=== PATIENT | female | born 1970 | race Hispanic/Latino ===

== ENCOUNTER 2025-03-22 15:18 | Emergency (ER) | payer BC ==
[~2025-03-22] VITALS: Ht 152.4 cm; Wt 58.5 kg
[2025-03-22 15:34] VITALS: BP 117/74; PULSE 95; RESP 18; TEMP 98.8; O2SAT 98
[2025-03-22] MEDS: CLINDAMYCIN 150 MG CAP PO ONE (15:39)
[2025-03-22] MEDS ORDERED: CLIN-141 PO (16:04)
--- NOTE | 2025-03-22 16:05 | ERN ---
ED Note History of Present Illness Stated Complaint: LEFT TOOTH PAIN Chief Complaint: Tooth Ache/Pain Time Seen by MD: 15:25 Time Seen by Midlevel: 15:26 Dictation: 54-year-old female presents to the emergency department due to report of having pain to the left lower tooth that began 6 days ago. She states that she was placed on amoxicillin 3 days ago and has not felt any significant improvement. At this time, her level of discomfort is rated as a 4/10. She denies having any fever or chills associated with this. Patient states that the discomfort is primarily worsened with chewing or drinking cold liquids. She states that she is pending to follow up with her dentist next week. Upon initial evaluation, the patient presents in no acute distress. Allergies: Coded Allergies: No Known Drug Allergies (Unverified Allergy, Unknown, 03/22/25) Emergency Care RESOLUTION REP: None Past Medical History Past Medical History: Anxiety, Cancer, Depression, High Cholesterol Surgical History: None Surgical History Other: LAP ABD X2 SUGERIES History: Not Applicable RN Note Reviewed/Agreed w/PFSH: Yes Review of System Dictation ENT: Toothache Initial Vital Sign VS Vital Signs Date Time Temp Pulse Resp B/P (MAP) Pulse Ox O2 Delivery O2 Flow Rate FiO2 03/22/25 15:26 98.8 105 18 117/74 98 Room Air 0 03/22/25 15:34 21 Physical Exam Dictation General: awake, alert, NAD Head/Face: Normocephalic, atraumatic Eyes: PERRL, EOMI ENT: Oral mucosa moist, infected dental caries tooth 19. Neck: Trachea midline, supple Cardiovascular: RRR, no edema Respiratory: Symmetrical, non-labored Abdomen: Soft, non-tender, non-distended, no guarding. Skin: Warm, dry, good turgor, no rash MS/Extremity: Pulses equal, no cyanosis, neurovascular intact, FROM Neuro: COAx4, GCS 15, steady gait, Psych: Normal behavior, mood, and affect normal ED Course ED Course Orders Procedure Category Date Status Time Clindamycin 150mg Cap PHA 03/22/25 In Process (Cleocin 150mg Cap 16:00 Current Medications Medications (Trade) Dose Ordered Sig/West Route PRN Reason Start Time Stop Time Status Last Admin Dose Admin Clindamycin HCl (Cleocin 150mg Cap) 300 mg ONCE ONCE PO 03/22/25 16:00 03/22/25 16:01 03/22/25 15:39 Vital Signs Date Time Temp Pulse Resp B/P (MAP) Pulse Ox O2 Delivery O2 Flow Rate FiO2 03/22/25 15:34 98.8 95 18 117/74 98 Room Air* 0 21 03/22/25 15:26 98.8 105 18 117/74 98 Room Air 0 Medical Decision Making MDM MDM: Differential diagnosis: Dentalgia, infected dental caries, tooth fracture. Rationale: Tests considered and ordered secondary to shared decision making include: Previous outside records reviewed: Old ER visits. Risk of complication and/or morbidity or mortality of patient management: None Medications-Per medication reconciliation Need for hospitalization: Patient does not meet criteria for hospitalization. Need for emergency major/minor surgery: No There are no social concerns with this patient. Prescription drug management Prescriptions will include symptomatic care Patient's prior external medical records from other ER visits were reviewed by me as indicated. Prior testing and results from previous visits were reviewed. Prior tests were taken into account with medical decision making and resource utilization, independent historian/historians were used to obtain complete medical history. I independently interpreted the test that were performed, results were reviewed by me and considered findings on radiology if ordered. Medical management and examination interpretation discussions were had by me with other qualified healthcare professionals as indicated for the patient's care. DX & DISP Disposition: Discharge Departure Impression: Primary Impression: Infected dental caries Condition: Stable Scripts Clindamycin HCl (Clindamycin HCl) 300 Mg Capsule 1 CAP PO TID for 10 Days, #30 CAP 0 Refills Prov: DOMO MCFARLAND 03/22/25 Referrals: SOFIYA DONOVAN MD (PCP) Time of Disposition: 16:04 DOMO MCFARLAND Mar 22, 2025 16:05
--- NOTE | 2025-03-22 16:11 | NUR ---
DISCHARGED AT THIS TIME. UNABLE TO DEPART FROM [facility] DUE TO THIRD DEMOCRAT REGISTRATION ON CHART
== END 2025-03-22 16:15 | disposition home or self-care (01) ==
LOC: EDH 15:18
DX: K02.9 Dental caries, unspecified (principal); E78.00 Pure hypercholesterolemia, unspecified; F32.A Depression, unspecified; F41.9 Anxiety disorder, unspecified
CPT/HCPCS: 99283